=== PATIENT | male | born 1995 | race Caucasian/White ===

== ENCOUNTER 2017-04-04 00:20 | Observation (INO) | payer OTHER ==
[~2017-04-04] VITALS: Ht 177.8 cm; Wt 100.1 kg
[2017-04-04] VITALS (8 sets, daily range): BP systolic 111–133; BP diastolic 68–92; PULSE 81–113; TEMP 36.3–36.8; O2SAT 91–96; Ht 177.8 cm; Wt 100.1 kg
[2017-04-04] MEDS ORDERED: SERT50TA PO (00:33)
[2017-04-04] MEDS ORDERED: MoRPHine SULFATE 4 MG/ML 1 ML CARP\\VIAL IV STA (00:39)
[2017-04-04] MEDS ORDERED: ONDANSETRON INJ 2 MG/ML 2 ML VIAL IV STA (00:39)
[2017-04-04] MEDS ORDERED: SODIUM CHLORIDE 0.9% 1000ML 1,000 ML IV STA ×2 (00:39)
[2017-04-04 01:12] LABS: URINE APPEARANCE CLEAR (CLEAR); URINE BILIRUBIN NEG (NEG); URINE COLOR YELLOW; URINE NITRITE NEG (NEG); URINE PH 6.5 (4.5-7.5); URINE SPECIFIC GRAVITY 1.022 (1.000-1.030); UROBILINOGEN NEG (NEG)
[2017-04-04 01:13] LABS: BASO % 0.6 %; BASO ABS # 0.08 K/uL (0-0.2); COMPLETE YES; EOS % 0.9 %; HEMATOCRIT 42.8 % (42-52); IG% 0.2 %; LYMPH % 15.1 %; LYMPH ABS # 2.04 K/uL (1.2-3.4); MEAN CELL VOLUME 88.2 fL (80-100); MEAN CORPUSCULAR HEMOGLOBIN 30.7 pg (25-34); MEAN CORPUSCULAR HGB CONC 34.8 g/dl (32-36); MEAN PLATELET VOLUME 9.2 fL (7.4-10.4); NEUT % 76.2 %; PLATELET COUNT 324 K/uL (130-400); RED BLOOD COUNT 4.85 M/uL (4.7-6.1); WHITE BLOOD COUNT 13.48 K/uL (4.8-10.8)
[2017-04-04 01:15] LABS: MANUAL MICROSCOPIC REQUIRED? NO; REVIEW REQ? NO
[2017-04-04 01:32] LABS: ALT/SGPT 40 U/L (12-78); BLOOD UREA NITROGEN 16 mg/dl (7-18); BUN/CREATININE RATIO 14.6 (10-20); CALCIUM 10.1 mg/dl (8.5-10.1); CARBON DIOXIDE 29 mmol/L (21-32); CHLORIDE 105 mmol/L (98-107); GLUCOSE 108 mg/dl (70-99); POTASSIUM 3.4 mmol/L (3.5-5.1); SODIUM 139 mmol/L (136-145)
[2017-04-04 01:35] LABS: ALKALINE PHOSPHATASE 91 U/L (45-117); AST/SGOT 20 U/L (15-37)
[2017-04-04] MEDS ORDERED: HYDROmorphone INJ 0.5 MG/0.5 ML SYR IV STA (01:37)
[2017-04-04] MEDS ORDERED: CEFOXITIN IV 2,000 MG in DEXTROSE 5% 50ML 50 ML IV ONE (02:30)
[2017-04-04] MEDS ORDERED: HYDROmorphone INJ 1 MG/ML SYR ONE (02:38)
[2017-04-04] MEDS ORDERED: IV FLUIDS COMPLETED PRN (04:30)
--- NOTE | 2017-04-04 04:31 | EMERGENCY ROOM VISIT NOTE ---
History First contact with patient: 00:37 Chief Complaint: ABDOMINAL PAIN Stated Complaint: ACUTE CHOLECYSTITIS Nursing Triage Summary: c/o right lower abd and back pain x 5 hours with nausea. History of Present Illness The patient is a 21 year old male who presents to the Emergency Room with complaints of Sudden onset of right upper quadrant pain with nausea after eating [place] food. Pain 8 at 10. Nothing makes it better or worse. It does not radiate. There is a family history of gallbladder disease. Patient eats a lot of fatty foods. Patient denies chest pain, dyspnea, fever, chills, cough, congestion, diarrhea, back pain, urinary symptoms. Review of Systems See HPI for pertinent positives & negatives. A total of 10 systems reviewed and were otherwise negative. Past Medical/Surgical History Depression Social History Smoking Status: Never Smoker Smokeless Tobacco Use: No Drug Use: none Occupation Status: [employer] student Current/Historical Medications Scheduled Sertraline (Zoloft), 75 MG PO DAILY Allergies Coded Allergies: Bacitracin (Verified Allergy, Unknown, rash, 04/04/17) Neomycin (Verified Allergy, Unknown, rash, 04/04/17) Polymyxin B (Verified Allergy, Unknown, rash, 04/04/17) Physical Exam Vital Signs Date Time Temp Pulse Resp B/P (MAP) Pulse Ox O2 Delivery O2 Flow Rate FiO2 04/04/17 01:39 74 20 126/84 98 Room Air 04/04/17 01:07 97 Room Air 04/04/17 00:26 36.7 96 16 146/94 99 Room Air Physical Exam VITALS: Vitals are noted on the nurse's note and reviewed by myself. Vital signs stable. GENERAL: Pleasant male who appears in pain, nondiaphoretic, well-developed well- nourished. SKIN: The skin was without rashes, erythema, edema, or bruising. There is no tenting of the skin. Capillary reflex less than 2 seconds. HEAD: Normocephalic atraumatic. EARS: External auditory canals clear, tympanic membranes pearly langley without erythema or effusion bilaterally. EYES: Pupils equal round and reactive to light and accommodation. Conjunctivae without injection, sclerae without icterus. Extraocular movements intact. NOSE: Patent, turbinates without inflammation or discharge. MOUTH: Mucous membranes moist Pharynx without erythema or exudate. Uvula midline. Airway patent. Tongue does not deviate. NECK: Supple without nuchal rigidity. No lymphadenopathy. No thyromegaly. Cervical spine is nontender. No JVD. HEART: Regular rate and rhythm without murmurs gallops or rubs. LUNGS: Clear to auscultation bilaterally without wheezes, rales or rhonchi. No dullness to percussion. No retractions or accessory muscle use. ABDOMEN: Positive bowel sounds x 4. Normal tympanic percussion. Soft, tender to palpation right upper quadrant, no CVA tenderness, without masses or organomegaly. Turner sign positive. No guarding or rebound tenderness. MUSCULOSKELETAL: No muscle atrophy, erythema, or edema noted. NEURO: Patient was alert and oriented to person place and time. Normal sensation to light and sharp touch. No focal neurological deficits. Medical Decision & Procedures Laboratory Results 04/04/17 01:00 Red Blood Count 4.85, Mean Corpuscular Volume 88.2, Mean Corpuscular Hemoglobin 30.7, Mean Corpuscular Hemoglobin Concent 34.8, Mean Platelet Volume 9.2, Neutrophils (%) (Auto) 76.2, Lymphocytes (%) (Auto) 15.1, Monocytes (%) (Auto) 7.0, Eosinophils (%) (Auto) 0.9, Basophils (%) (Auto) 0.6, Neutrophils # (Auto) 10.27, Lymphocytes # (Auto) 2.04, Monocytes # (Auto) 0.94, Eosinophils # (Auto) 0.12, Basophils # (Auto) 0.08 04/04/17 01:00 Test 04/04/17 01:00 White Blood Count 13.48 K/uL (4.8-10.8) Red Blood Count 4.85 M/uL (4.7-6.1) Hemoglobin 14.9 g/dL (14.0-18.0) Hematocrit 42.8 % (42-52) Mean Corpuscular Volume 88.2 fL (80-100) Mean Corpuscular Hemoglobin 30.7 pg (25-34) Mean Corpuscular Hemoglobin Concent 34.8 g/dl (32-36) Platelet Count 324 K/uL (130-400) Mean Platelet Volume 9.2 fL (7.4-10.4) Neutrophils (%) (Auto) 76.2 % Lymphocytes (%) (Auto) 15.1 % Monocytes (%) (Auto) 7.0 % Eosinophils (%) (Auto) 0.9 % Basophils (%) (Auto) 0.6 % Neutrophils # (Auto) 10.27 K/uL (1.4-6.5) Lymphocytes # (Auto) 2.04 K/uL (1.2-3.4) Monocytes # (Auto) 0.94 K/uL (0.11-0.59) Eosinophils # (Auto) 0.12 K/uL (0-0.5) Basophils # (Auto) 0.08 K/uL (0-0.2) RDW Standard Deviation 41.3 fL (36.4-46.3) RDW Coefficient of Variation 12.9 % (11.5-14.5) Immature Granulocyte % (Auto) 0.2 % Immature Granulocyte # (Auto) 0.03 K/uL (0.00-0.02) Urine Color YELLOW Urine Appearance CLEAR (CLEAR) Urine pH 6.5 (4.5-7.5) Urine Specific [place] 1.022 (1.000-1.030) Urine Protein NEG (NEG) Urine Glucose (UA) NEG (NEG) Urine Ketones NEG (NEG) Urine Occult Blood NEG (NEG) Urine Nitrite NEG (NEG) Urine Bilirubin NEG (NEG) Urine Urobilinogen NEG (NEG) Urine Leukocyte Esterase NEG (NEG) Anion Gap 5.0 mmol/L (3-11) Est Creatinine Clear Calc Drug Dose 126.0 ml/min Estimated GFR () 110.6 Estimated GFR (Non- 95.5 BUN/Creatinine Ratio 14.6 (10-20) Calcium Level 10.1 mg/dl (8.5-10.1) Total Bilirubin 0.2 mg/dl (0.2-1) Direct Bilirubin < 0.1 mg/dl (0-0.2) Aspartate Amino Transf (AST/SGOT) 20 U/L (15-37) Alanine Aminotransferase (ALT/SGPT) 40 U/L (12-78) Alkaline Phosphatase 91 U/L (45-117) Total Protein 8.0 gm/dl (6.4-8.2) Albumin 4.1 gm/dl (3.4-5.0) Lipase 144 U/L (73-393) Medications Administered Medications (Trade) Dose Ordered Sig/Anna Route Start Time Stop Time Status Last Admin Dose Admin Morphine Sulfate (MoRPHine SULFATE INJ) 4 mg NOW STAT IV 04/04/17 00:39 04/04/17 00:41 DC 04/04/17 00:59 4 MG Ondansetron HCl (Zofran Inj) 4 mg NOW STAT IV 04/04/17 00:39 04/04/17 00:41 DC 04/04/17 00:59 4 MG Sodium Chloride 1,000 ml @ 999 mls/hr Q1H1M STAT IV 04/04/17 00:39 04/04/17 01:39 DC 04/04/17 00:58 999 MLS/HR Sodium Chloride 1,000 ml @ 125 mls/hr Q8H STAT IV 04/04/17 00:39 04/04/17 08:38 04/04/17 00:58 125 MLS/HR Hydromorphone HCl (Dilaudid Inj) 0.5 mg NOW STAT IV 04/04/17 01:37 04/04/17 01:38 DC 04/04/17 01:45 0.5 MG ED Course Prior records/ancillary studies reviewed. Triage Nursing notes reviewed. Additional history obtained from family. The patient's history was concerning for abdominal pain. Differential diagnosis: Etiologies such as appendicitis, diverticulitis, PUD, biliary pathology, UTI, pancreatitis, obstruction, mesenteric ischemia, aortic pathology, infections, inflammatory bowel disease, renal colic, as well as others were entertained. Physical examination findings: As above. ER treatment provided: Dilaudid, Zofran, Mefoxin, IV fluids, nothing by mouth On reassessment the patient felt better. Diagnostics interpreted by me: The labs revealed cytosis. Stable H&H Imaging studies: Ultrasound concerning for cholelithiasis with thickened gallbladder Consultation: A consultation was placed with the Dr. Das. The case was discussed and diagnostics were reviewed. The patient was evaluated in the ER for further treatment. He will do admission orders from home. I wrote from [facility]. Exam and history seem consistent with cholecystitis. Patient was started on antibiotics. Surgery was consulted and takes the admission. Please see his dictation for further information regarding his treatment plan. Patient was placed nothing by mouth. Family is agreeable to treatment plan of admission. Patient was admitted in stable condition. By the evaluation outlined above emergent etiologies such as appendicitis, diverticulitis, PUD, UTI, pancreatitis, obstruction, mesenteric ischemia, aortic pathology, infections, inflammatory bowel disease, renal colic, as well as others were deemed relatively unlikely. The pt informed about the findings as listed above. All questions were answered and pleased with the treatment. Case reviewed by attending Medical Decision As above Impression Primary Impression: Acute cholecystitis Departure Information Dispostion Being Evaluated By Surgeon Condition FAIR Referrals [facility] (PCP) Forms HOME CARE DOCUMENTATION FORM, IMPORTANT VISIT INFORMATION Patient Instructions [facility]
[2017-04-04] MEDS ORDERED: ONDANSETRON INJ 2 MG/ML 2 ML VIAL IV PRN ×2 (04:45→12:45)
[2017-04-04] MEDS: LACTATED RINGER'S 1000ML 1,000 ML IV SCH ×2 (05:01→14:53)
[2017-04-04] MEDS: MoRPHine SULFATE 4 MG/ML 1 ML CARP\\VIAL IV PRN ×2 (05:58→07:51)
--- NOTE | 2017-04-04 06:46 | DIAGNOSTIC IMAGING REPORT ---
] Ultrasound GALLBLADDER-ABD LIMITED CLINICAL HISTORY: rug pain, ? GB pain. Nausea. TECHNIQUE: Ultrasound COMPARISON STUDY: None FINDINGS: Gallstones. Gallbladder wall 3 mm. No abnormal pericholecystic fluid. Common bile duct poorly seen but most likely 5 to 6 mm. Mild fatty infiltration of liver. Pancreas and right kidney unremarkable. IMPRESSION: 1. Fatty infiltration of liver. 2. Gallstones. 3. Biliary ductal system top limits normal in terms of diameter Electronically signed by: Hossein Arora M.D. 04/04/2017 6:45 AM Dictated Date/Time: 04/04/2017 6:43 AM
--- NOTE | 2017-04-04 08:09 | History and Physical ---
History & Physical Date Apr 04, 2017. Chief Complaint pt began having abdominal pain around 7 pm last night. progressed so he went to the ER. continues to have pain and nausea but it is in the RLQ not RUQ. History of Present Illness The patient is a 21 year old male with complaints of Additional History Hepatic Disease: No Endocrine Disorder: No Kidney Disease: No Hypertension: No Heart Disease: No Bleeding Tendencies: No Infectious Diseases: No Allergies Coded Allergies: Bacitracin (Verified Allergy, Unknown, rash, 04/04/17) Neomycin (Verified Allergy, Unknown, rash, 04/04/17) Polymyxin B (Verified Allergy, Unknown, rash, 04/04/17) Home Medications Scheduled Sertraline (Zoloft), 75 MG PO DAILY Physical Examination Skin: warm/dry Eyes: normal inspection, EOMI Head: normocephalic, atraumatic Neck: supple, trachea midline Respiratory/Chest: no respiratory distress Cardiovascular: regular rate, rhythm Abdomen / GI: + pertinent finding (+RLQ ttp. +guarding. +rebound) Neurologic/Psych: alert, oriented x 3 Diagnosis RLQ with leukocytosis. I suspect more likely appendicitis . US shows gallstones but no cholecystitis d/w him and his father. will proceed with lap ishmael but will eval appendix. may need appendectomy pt adamantly wants gallbladder out even if appendix is the etiology of his pain discussed risks ( bleeding/infection/dvt/pe/injury to bowel or bile ducts etc... ) questions answered. ok to proceed.
--- NOTE | 2017-04-04 09:54 | History & Physical Bridge Note ---
H&P Re-Evaluation Bridge Note: I have examined the patient, reviewed the History & Physical and in the interval since the performance of the History & Physical I have noted the following changes of clinical significance: No changes noted
[2017-04-04] MEDS ORDERED: BUPIVACAINE/EPINEPHRINE 0.5% MPF 1:200,000 10 ML VIAL ONE (10:14)
[2017-04-04] MEDS ORDERED: MIDAZOLAM HCL 1 MG/ML 2ML VIAL ONE (10:18)
[2017-04-04] MEDS ORDERED: ONDANSETRON INJ 2 MG/ML 2 ML VIAL ONE (10:18)
[2017-04-04] MEDS ORDERED: ROCURONIUM BROMIDE 10 MG/ML 5 ML VIAL ONE (10:18)
[2017-04-04] MEDS ORDERED: GLYCOPYRROLATE INJ 0.2 MG/ML VIAL ONE ×2 (10:18→10:49)
[2017-04-04] MEDS ORDERED: FENTANYL CITRATE INJ 50 MCG/1 ML 2 ML VIAL ONE (10:18)
[2017-04-04] MEDS ORDERED: NEOSTIGMINE METHYLSULFATE 5 MG/5 ML SYR ONE (10:18)
[2017-04-04] MEDS ORDERED: DEXAMETHASONE SOD INJ 4 MG/ML VIAL ONE (10:18)
[2017-04-04] MEDS ORDERED: PROPOFOL IV EMULSION 10 MG/ML 20 ML VIAL IV ONE (10:18)
[2017-04-04] MEDS ORDERED: LIDOCAINE HCL 2% 2 ML VIAL (20MG/ML) ONE (10:18)
[2017-04-04] MEDS ORDERED: SUCCINYLCHOLINE CHLORIDE 20 MG/ML 10 ML VIAL IV ONE (10:49)
[2017-04-04] MEDS ORDERED: CEFAZOLIN SOD 1 GM VIAL ONE (10:53)
[2017-04-04] MEDS ORDERED: PHENYLEPHRINE 100MCG/ML 5ML SYR ONE (11:35)
[2017-04-04] MEDS ORDERED: KETOROLAC TROMETHAMINE 30 MG/ML VIAL ONE (11:50)
--- NOTE | 2017-04-04 12:10 | [facility] Operative Report ---
Operative Report Operative Date Apr 04, 2017. Pre-Operative Diagnosis Acute cholecystitis; cholelithiasis Post-Operative Diagnosis acute cholecystits;normal appendix Procedure(s) Performed lap ishmael Surgeon Dr. Bob Das Developer Relations Manager Surgeon(s) Stefania Dejesus PA-C Estimated Blood Loss 30 cc Findings acutely inflammed gallbladder Specimens A: gallbladder Anesthesia get Complication(s) None Disposition Recovery Room / PACU Description of Procedure After informed consent was obtained the patient was taken to the operating suite placed in supine position. After successful intubation the abdomen was shaved and sterilely prepped and draped in usual fashion. A periumbilical incision was made with an 11 blade scalpel and carried down through the soft tissue using electrocautery. Anterior rectus fascia was opened using electrocautery and 2 #0 Vicryl stay sutures were placed. Peritoneum was elevated using hemostats and incised under direct vision using a Metzenbaum scissor. A finger sweep was performed and a 12 mm Magallon trocar was placed. Abdomen was insufflated to 18 mmHg. Laparoscope was inserted in the abdomen examined her and 60. Surprisingly we immediately noted an acutely inflamed gallbladder with a thickened wall and some fluid around it. I did place a 5 mm subxiphoid trocar and 2 right mid abdominal 5 mm trochars. The patient was placed in a reverse Trendelenburg position and slightly air planed to the left. The gallbladder was too thick to grab so we used a gallbladder needle to decompress it. We got dark thick sludge out of it. We then were able to elevate it superiorly and laterally. Again it was acutely inflamed making dissection somewhat difficult. I was able dissect free the neck of the gallbladder and identify the cystic duct. It was clipped twice proximally once distally and transected. In similar fashion the cystic artery was identified and skeletonized clipped and divided. The gallbladder was removed from the gallbladder fossa using electrocautery. It was removed intact and placed into an Endo Catch bag. We did use cautery to control several small bleeding points on the gallbladder fossa. Thorough irrigation was then performed. At the end of the procedure was adequate hemostasis and no evidence of a bile leak. We did look around the remainder of the abdomen. I did look at the appendix and it was normal in appearance as was the small bowel and cecum. No other gross abnormalities were identified. The gallbladder was removed from the umbilical incision. All trochars were removed. The abdomen was desufflated. The fascia of the camera port was closed using 0 Vicryl in a [id number] fashion. All wounds were irrigated and closed with 4-0 Monocryl. Marcaine was injected around for postoperative analgesia and skin glue used as a dressing the patient was extubated and transferred recovery in stable condition I attest to the content of the Intraoperative Record and any orders documented therein. Any exceptions are noted below.
[2017-04-04] MEDS ORDERED: HYDROCODONE/ACETAMOPHEN 5/325MG TAB PO PRN (12:15)
--- NOTE | 2017-04-04 12:16 | Medical Student: [facility] ---
Immediate Operative Summary Operative Date Apr 04, 2017. Pre-Operative Diagnosis Acute cholecystitis Post-Operative Diagnosis Acute cholecystitis Procedure(s) Performed Laprascopic cholecystectomy Surgeon Dr. Das Towboat Operator Surgeon(s) Stefania Dejesus Estimated Blood Loss 30cc Findings Acute cholecystitis with normal appearing retrocecal appendix Fluids (cc crystalloids) 800mL Specimens gallbladder Drains James - removed after surgery Anesthesia General Complication(s) None Disposition Recovery Room / PACU
[2017-04-04] MEDS ORDERED: PHENYLEPHRINE 100MCG/ML 5ML SYR IV PRN (12:45)
[2017-04-04] MEDS ORDERED: EpHEDrine SULFATE INJ 50 MG/ML AMP IV PRN (12:45)
[2017-04-04] MEDS ORDERED: HYDROmorphone INJ 2 MG/ML SYR/VIAL IV PRN (12:45)
[2017-04-04] MEDS ORDERED: ATROPINE SULFATE 0.1 MG/ML 5ML SYR IV PRN (12:45)
--- NOTE | 2017-04-04 12:56 | Anesthesiology Progress Note ---
Anesthesia Post Op Note Date & Time Apr 04, 2017 at 12:56 Vital Signs Pain Intensity: 0 Vital Signs Past 12 Hours Date Time Temp Pulse Resp B/P (MAP) Pulse Ox O2 Delivery O2 Flow Rate FiO2 04/04/17 12:50 110 14 130/79 98 Oxymask 3 04/04/17 12:40 106 14 133/78 99 Oxymask 3 04/04/17 12:30 119 14 128/79 99 Oxymask 5 04/04/17 12:20 125 14 124/63 100 Oxymask 10 04/04/17 12:14 37.0 115 14 134/70 98 Oxymask 10 04/04/17 07:45 Room Air 04/04/17 07:32 36.6 81 16 133/92 (106) 96 Room Air 04/04/17 03:30 36.7 20 126/84 Room Air 04/04/17 03:30 Room Air 04/04/17 03:24 36.4 90 16 122/80 (94) 94 Room Air 04/04/17 01:39 74 20 126/84 98 Room Air 04/04/17 01:07 97 Room Air Notes Mental Status: alert / awake / arousable, participated in evaluation Pt Amnestic to Procedure: Yes Nausea / Vomiting: adequately controlled Pain: adequately controlled Airway Patency, RR, SpO2: stable & adequate BP & HR: stable & adequate Hydration State: stable & adequate Anesthetic Complications: no major complications apparent
[2017-04-04] MEDS ORDERED: HYDR-5688 PO (14:01)
--- NOTE | 2017-04-04 14:02 | Discharge Instructions ---
Discharge Instructions Date of Service Apr 04, 2017. Admission Reason for Admission: Acute Cholecystitis Discharge Discharge Diagnosis / Problem: laparoscopic cholecystectomy Discharge Goals Goal(s): Decrease discomfort Activity Recommendations Activity Limitations: as noted below Lifting Limitations: no more than 10 pounds Shower/Bathe: tomorrow Driving or Machine Use: resume 3 days after discharge (if not taking [place]) . Instructions / Follow-Up Instructions / Follow-Up Dr. Patel office in 2 weeks, call [phone] to schedule Current Hospital Diet Patient's current hospital diet: Clear Liquid Diet Discharge Diet Recommended Diet: Regular Diet Procedures Procedures Performed: Laparoscopic cholecystectomy Pending Studies Studies pending at discharge: yes List of pending studies: pathology Medical Emergencies . Who to Call and When: Medical Emergencies: If at any time you feel your situation is an emergency, please call 911 immediately. . Non-Emergent Contact Non-Emergency issues call your: Surgeon Call Non-Emergent contact if: you have a fever, temperature is above 101.5, your pain is not controlled, wound has increased redness, you have any medication questions . "Provider Documentation" section prepared by Kishore Zurita. . VTE Core Measure Inpt VTE Proph given/why not?: SCD's [place] Drug Monitoring Program Search Results: no issues identified
--- NOTE | 2017-04-04 16:09 | Discharge Summary ---
Discharge Summary Date of Service Apr 04, 2017. Admission Date/Reason Apr 04, 2017 at 02:35 Acute Cholecystitis. Discharge Date/Disposition Apr 04, 2017 Home Diagnosis Principal Diagnosis: Cholelithiasis, acute cholecystitis Procedure(s) Performed Laparoscopic cholecystectomy Medication Reconciliation New Medications: Hydrocodone/Acetaminophen 5MG/325MG ([place] 5MG/325MG) Tab 1-2 TABLET PO Q4H PRN for Pain, #30 TAB Continued Medications: Sertraline (Zoloft) 50 Mg Tab 75 MG PO DAILY, TAB Referrals Follow up Referrals: Surgery Referral - Within 2 Weeks with Bob Das D.O. Admission Physical Exam As per Admitting History & Physical. Hospital Course 21 y/o male presented to ED with RUQ pain and nausea that began after eating [place] dinner and continued overnight. Ultrasound showed cholelithiasis, WBCs were 13,000 and had right sided tenderness and guarding. He was admitted to surgical service and taken to the operating room later in the morning for laparoscopic cholecystectomy. The procedure was well tolerated and he was returned to the surgical floor. By the afternoon he was tolerating regular diet and had not taken any analgesics in several hours. He was stable for discharge. Discharge Instructions Please refer to the electronic Patient Visit Report (Discharge Instructions) for additional information.
[2017-04-04] MEDS ORDERED: CEFAZOLIN IV 1,000 MG in DEXTROSE 5% 50ML 50 ML IV SCH (19:00)
[2017-04-05] MEDS ORDERED: SERTRALINE HCL 50 MG TAB PO SCH (09:00)
== END 2017-04-04 17:50 | disposition home or self-care (01) ==
LOC: C.EDB 00:22 → C.MSW 02:35
PROVIDERS: ADMIT Surgery; ATTEND Surgery
DX: K80.12 Calculus of gallbladder with acute and chronic cholecystitis without obstruction (principal); F32.9 Major depressive disorder, single episode, unspecified; Z79.899 Other long term (current) drug therapy